=== PATIENT | male | born 1965 | race Native Hawaiian/Other Pacific Islander ===

== ENCOUNTER 2018-05-08 17:32 | Emergency (ER) | payer OTHER ==
[~2018-05-08] VITALS: Ht 175.3 cm; Wt 96.6 kg
[2018-05-08 17:43] VITALS: BP 126/80; TEMP 98.9
[2018-05-08] MEDS ORDERED: FENT100D TD (18:12)
[2018-05-08] MEDS ORDERED: LYRICA 100 MG100 MG PO (18:12)
[2018-05-08] MEDS ORDERED: LIALDA1.2 GM PO (18:13)
[2018-05-08] MEDS ORDERED: BACLOFEN20 MG PO (18:13)
[2018-05-08] MEDS ORDERED: SERT50TA PO (18:13)
[2018-05-08] MEDS ORDERED: ZESTRIL40 MG OR (18:14)
[2018-05-08] MEDS ORDERED: DOXA2TAB PO (18:14)
[2018-05-08] MEDS ORDERED: EDLUAR10 MG SL (18:15)
[2018-05-08] MEDS ORDERED: REMERON SOLTAB15 MG OR (18:15)
[2018-05-08] MEDS ORDERED: AMLO2.5T PO (18:15)
[2018-05-08 18:24] LABS: PLATELET COUNT 197 K/uL (142-355)
[2018-05-08 18:32] LABS: POTASSIUM 3.9 mmol/L (3.6-5.2)
== END 2018-05-08 19:06 | disposition home or self-care (01) ==
LOC: ED 17:32
DX: J98.8 Other specified respiratory disorders (principal)
CPT/HCPCS: 80053; 85027; 87077; 87081; 87185; 87880; 99283

== ENCOUNTER 2019-04-14 12:56 | Outpatient (CLI) | payer OTHER ==
[~2019-04-14 12:56] MED LIST: AMLO2.5T PO; BACLOFEN20 MG PO; DOXA2TAB PO; EDLUAR10 MG SL; FENT100D TD; LIALDA1.2 GM PO; LYRICA 100 MG100 MG PO; REMERON SOLTAB15 MG OR; SERT50TA PO; ZESTRIL40 MG OR
== END 2019-04-14 20:48 | disposition home or self-care (01) ==
LOC: US 12:56
DX: Z87.898 Personal history of other specified conditions (principal); N63.20 Unspecified lump in the left breast, unspecified quadrant

== ENCOUNTER 2019-04-27 15:07 | Emergency (ER) | payer OTHER ==
[~2019-04-27] VITALS: Ht 175.3 cm; Wt 104.3 kg
[2019-04-27 15:42] LABS: PLATELET COUNT 172 K/uL (142-355)
[2019-04-27 15:51] LABS: POTASSIUM 3.2 mmol/L (3.6-5.2)
[2019-04-27 21:07] VITALS: BP 112/70; TEMP 98.2
== END 2019-04-27 21:08 | disposition home or self-care (01) ==
LOC: ED 15:07
PROVIDERS: Emergency Medicine
DX: R33.8 Other retention of urine (principal); R10.84 Generalized abdominal pain; R60.0 Localized edema
CPT/HCPCS: 80053; 83880; 84436; 84443; 84479; 85027; 85379; 93005; 99284; Q9963

== ENCOUNTER 2019-07-12 11:10 | Day surgery (SDC) | payer OTHER | END 2019-07-12 14:00 | disposition home or self-care (01) | LOC: OR 11:10 | PROC: 3E0R33Z Introduction of Anti-inflammatory into Spinal Canal, Percutaneous Approach (ICD-10-PCS; principal; 2019-07-12) | PROC: B01BYZZ Fluoroscopy of Spinal Cord using Other Contrast (ICD-10-PCS; 2019-07-12) | DX: M51.16 Intervertebral disc disorders with radiculopathy, lumbar region (principal); M96.1 Postlaminectomy syndrome, not elsewhere classified ==

== ENCOUNTER 2019-07-13 21:52 | Observation (INO) | payer OTHER ==
[~2019-07-13] VITALS: Ht 175.3 cm; Wt 98.9 kg
[2019-07-13 22:01] VITALS: BP 139/94; TEMP 98.2
[2019-07-13 22:30] VITALS: BP 106/73
[2019-07-13 22:43] LABS: PLATELET COUNT 193 K/uL (142-355); POTASSIUM 2.9 mmol/L (3.6-5.2); SODIUM 140 mmol/L (136-145)
[2019-07-13 23:00] VITALS: BP 117/77
[2019-07-13 23:30] VITALS: BP 150/98
--- NOTE | 2019-07-14 00:30 | NUR ---
0015- TOOK REPORT ON PT FROM ED NURSE MARTA DOVE RN 0030- PT WAS TRANSFERRED VIA W/C TO ROOM 1109 ON MED-SURG DEPT FROM ED. ORIENTED TO ROOM AND CALL LIGHT, PLACED ON TELEMENTRY AND IS BEING MONITORED AT NURSES STATION. PT REQUESTED SOMETHING TO EAT AND DRINK AND WAS CARRIED, SOUP, CEREAL, JUICE, AND MILK. NO ACUTE DISTRESS NOTED. CALL LIGHT IS WITHIN REACH. WILL CONTINUE TO MONITOR.
[2019-07-14 01:39] VITALS: BP 131/89; TEMP 98.5; Ht 175.3 cm; Wt 98.9 kg
[2019-07-14 04:00] VITALS: BP 95/60; TEMP 98.2
--- NOTE | 2019-07-14 04:50 | NUR ---
PATIENT CHECKED IN ON AND FOUND TO BE RESTING IN BED WITH EYES CLOSED. NO ACUTE DISTRESS NOTED AND CALL LIGHT IS WITHIN REACH. TELEMENTRY IS IN PLACE AND BEING MONITORED AT NURSES STATION. WILL CONTINUE TO MONITOR.
--- NOTE | 2019-07-14 05:18 | NUR ---
CALLED ED TO REPORT TO PHYSICIAN PATIENT'S POTASSIUM LEVEL OF 2.9. ED NURSE KRISTEN STATED THAT SHE WOULD REPORT THIS INFORMATION TO PHYSICIAN AND CALL THIS NURSE BACK.
--- NOTE | 2019-07-14 05:55 | NUR ---
Spoke with ED physician, Dr Swain about patient's Ka of 2.9 and new order was received for Potassium, 60 mg, po, x 1 dose
[2019-07-14 08:00] VITALS: BP 105/63; TEMP 97.5
[2019-07-14 08:02] LABS: PLATELET COUNT 194 K/uL (142-355)
[2019-07-14 08:29] LABS: POTASSIUM 3.6 mmol/L (3.6-5.2)
--- NOTE | 2019-07-14 08:45 | NUR ---
PT C/O CHEST PAIN. PT STATES "IT IS SHARP, STABBING PAIN AND IT FEELS LIKE A CAR IS SITTING ON MY CHEST. MY LOWER BACK IS ALSO HURTING." PT IS NON DIAPHORETIC. BP 105/63, HR 80, RR 18, SPO2 [address] JEFFREY NOTIFIED. CE NORMAL, STAT EKG ORDERED. 0900- EKG FINSIHED AND GIVEN TO DR JEFFREY 0915- GI COCKTAIL GIVEN PER ORDER. PT STATES IS DOES NOT HELP HIM, PT ALSO STATES "THE NITRO THEY GAVE ME IN THE ER LAST NIGHT DID NOT HELP, IT JUST GAVE ME A HEADACE. THE MORPHINE SEEMED TO HELP BETTER."
[2019-07-14] MEDS ORDERED: CYCL10TA35 PO (10:07)
[2019-07-14] MEDS ORDERED: AMLODIPINE BESYLATE PO (10:08)
[2019-07-14] MEDS ORDERED: REMERON SOLTAB30 MG PO (10:09)
[2019-07-14] MEDS ORDERED: ESCITALOPRAM10 MG PO (10:10)
[2019-07-14] MEDS ORDERED: MS CONTIN15 MG PO (10:11)
[2019-07-14] MEDS ORDERED: OXYC5TAB53 PO (10:13)
[2019-07-14] MEDS ORDERED: CARV12.5 PO (10:13)
[2019-07-14] MEDS ORDERED: LIPITOR20 MG PO (10:14)
[2019-07-14] MEDS ORDERED: SPIR50TA8 PO (10:15)
[2019-07-14] MEDS ORDERED: TAMS0.4C PO (10:16)
[2019-07-14 12:00] VITALS: BP 123/72; TEMP 98
--- NOTE | 2019-07-14 12:51 | NUR ---
IV DC TIP INTACT. PT GIVEN DC INSTRUCTIONS. PT PRESCRIPTIONS FOR ZITHROMAX WILLIE AND PREDNISONE 20 MG PO DAILY FILLED AT [facility]. PT INSTRUCTED TO F/U WITH PCP IN 5-7 DAYS. PT VERBALIZES UNDERSTANDING. PT INSTRUCTED TO REPORT ANY S/S OF CHEST PAIN, DIFFICULTY BREATHING, SOB. PT INSTRUCTED TO COME TO ER IF CHEST PAIN PRESIST. PT VERBALIZES UNDERSTANDING. PT DC VIA WC
== END 2019-07-14 13:00 | disposition home or self-care (01) ==
LOC: ED 21:52 → MED/SURG 23:20
PROVIDERS: Family Medicine; ADMIT Emergency Medicine
DX: R07.89 Other chest pain (principal); R09.1 Pleurisy; E87.6 Hypokalemia; D72.828 Other elevated white blood cell count; R73.9 Hyperglycemia, unspecified; I10 Essential (primary) hypertension
CPT/HCPCS: 36415; 80053; 80061; 82550; 82553; 83735; 83880; 84439; 84443; 84481; 84484; 85027; 85379; 86318; 93005; 96374; 99220; 99284; G0378; J0456; J1020; J2270; J2930; J3490

== ENCOUNTER 2019-08-09 07:29 | Day surgery (SDC) | payer OTHER ==
[~2019-08-09 07:29] MED LIST changes: +AMLODIPINE BESYLATE PO; +CARV12.5 PO; +CYCL10TA35 PO; +ESCITALOPRAM10 MG PO; +LIPITOR20 MG PO; +MS CONTIN15 MG PO; +OXYC5TAB53 PO; +REMERON SOLTAB30 MG PO; +SPIR50TA8 PO; +TAMS0.4C PO
== END 2019-08-09 09:07 | disposition home or self-care (01) ==
LOC: OR 07:29
PROC: 3E0R33Z Introduction of Anti-inflammatory into Spinal Canal, Percutaneous Approach (ICD-10-PCS; principal; 2019-08-09)
PROC: B01BYZZ Fluoroscopy of Spinal Cord using Other Contrast (ICD-10-PCS; 2019-08-09)
DX: M51.16 Intervertebral disc disorders with radiculopathy, lumbar region (principal)
CPT/HCPCS: J1020

== ENCOUNTER 2019-09-02 10:07 | Outpatient (CLI) | payer OTHER | END 2019-09-02 19:51 | disposition home or self-care (01) | LOC: MAMMO 10:07 | DX: N63.20 Unspecified lump in the left breast, unspecified quadrant (principal); N62 Hypertrophy of breast | CPT/HCPCS: G0279 ==

== ENCOUNTER 2019-09-15 13:08 | Outpatient (CLI) | payer OTHER | END 2019-09-15 23:32 | disposition home or self-care (01) | LOC: US 13:08 | DX: N63.20 Unspecified lump in the left breast, unspecified quadrant (principal); M54.12 Radiculopathy, cervical region ==

== ENCOUNTER 2019-10-18 10:21 | Day surgery (SDC) | payer OTHER | END 2019-10-18 12:46 | disposition home or self-care (01) | LOC: OR 10:21 | PROC: 3E0R33Z Introduction of Anti-inflammatory into Spinal Canal, Percutaneous Approach (ICD-10-PCS; principal; 2019-10-18) | PROC: B01BYZZ Fluoroscopy of Spinal Cord using Other Contrast (ICD-10-PCS; 2019-10-18) | DX: M50.123 Cervical disc disorder at C6-C7 level with radiculopathy (principal) | CPT/HCPCS: J1020 ==

== ENCOUNTER 2019-11-08 07:05 | Day surgery (SDC) | payer OTHER | END 2019-11-08 08:59 | disposition home or self-care (01) | LOC: OR 07:05 | PROC: 3E0R33Z Introduction of Anti-inflammatory into Spinal Canal, Percutaneous Approach (ICD-10-PCS; principal; 2019-11-08) | PROC: B01BYZZ Fluoroscopy of Spinal Cord using Other Contrast (ICD-10-PCS; 2019-11-08) | DX: M50.123 Cervical disc disorder at C6-C7 level with radiculopathy (principal) | CPT/HCPCS: J1020 ==

== ENCOUNTER 2019-12-20 09:11 | Outpatient (CLI) | payer OTHER | END 2019-12-20 19:24 | disposition home or self-care (01) | LOC: US 09:11 | DX: I10 Essential (primary) hypertension (principal); N28.1 Cyst of kidney, acquired; M54.16 Radiculopathy, lumbar region; M54.12 Radiculopathy, cervical region ==

== ENCOUNTER 2020-01-04 12:07 | Outpatient (CLI) | payer OTHER | END 2020-01-04 16:00 | disposition home or self-care (01) | LOC: CT 12:07 | DX: M54.12 Radiculopathy, cervical region (principal); Z79.82 Long term (current) use of aspirin | CPT/HCPCS: 36415; 85610; Q9963 ==

== ENCOUNTER 2020-09-04 10:28 | Day surgery (SDC) | payer OTHER | END 2020-09-04 10:59 | disposition home or self-care (01) | LOC: OR 10:28 | PROC: 3E0R33Z Introduction of Anti-inflammatory into Spinal Canal, Percutaneous Approach (ICD-10-PCS; principal; 2020-09-04) | PROC: B01BYZZ Fluoroscopy of Spinal Cord using Other Contrast (ICD-10-PCS; 2020-09-04) | DX: M50.123 Cervical disc disorder at C6-C7 level with radiculopathy (principal) | CPT/HCPCS: J1020 ==

== ENCOUNTER 2020-10-15 09:39 | Outpatient (CLI) | payer OTHER | END 2020-10-15 19:05 | disposition home or self-care (01) | LOC: LABW 09:39 | PROVIDERS: ATTEND Surgery | DX: N63.10 Unspecified lump in the right breast, unspecified quadrant (principal); N63.20 Unspecified lump in the left breast, unspecified quadrant; Z79.899 Other long term (current) drug therapy | CPT/HCPCS: 36415; 84402; 84403; 84436; 84439; 84443 ==

== ENCOUNTER 2020-11-05 19:42 | Emergency (ER) | payer OTHER ==
[~2020-11-05] VITALS: Ht 175.3 cm; Wt 106.1 kg
[2020-11-05 22:29] VITALS: BP 126/85; TEMP 99.8
== END 2020-11-05 22:30 | disposition home or self-care (01) ==
LOC: ED 19:42
DX: T78.49XA Other allergy, initial encounter (principal)
CPT/HCPCS: 96372; 99283; J0171

== ENCOUNTER 2020-11-13 14:10 | Outpatient (CLI) | payer OTHER ==
[2020-11-13 15:34] LABS: PLATELET COUNT 183 K/uL (142-355)
[2020-11-13 15:35] LABS: POTASSIUM 3.9 mmol/L (3.6-5.2)
== END 2020-11-13 18:51 | disposition home or self-care (01) ==
LOC: LABW 14:10
PROVIDERS: ATTEND Surgery
DX: N62 Hypertrophy of breast (principal); Z79.899 Other long term (current) drug therapy; Z11.59 Encounter for screening for other viral diseases; Z79.01 Long term (current) use of anticoagulants
CPT/HCPCS: 36415; 80053; 85027; 85610; 87635; 93005; U0003

== ENCOUNTER 2021-04-10 07:41 | Outpatient (CLI) | payer OTHER | END 2021-04-10 21:23 | disposition home or self-care (01) | LOC: US 07:41 | PROVIDERS: ATTEND Nurse Practitioner Family | DX: R60.0 Localized edema (principal); I10 Essential (primary) hypertension; E11.9 Type 2 diabetes mellitus without complications; M79.7 Fibromyalgia; G57.90 Unspecified mononeuropathy of unspecified lower limb ==

== ENCOUNTER 2021-04-16 08:49 | Outpatient (CLI) | payer OTHER ==
[2021-04-16 09:04] LABS: PLATELET COUNT 232 K/uL (142-355)
[2021-04-16 09:14] LABS: POTASSIUM 4.3 mmol/L (3.6-5.2)
== END 2021-04-16 22:04 | disposition home or self-care (01) ==
LOC: LABW 08:49
PROVIDERS: ATTEND Internal Medicine Hematology & Oncology
DX: C43.9 Malignant melanoma of skin, unspecified (principal)
CPT/HCPCS: 36415; 80053; 83615; 85027

== ENCOUNTER 2021-08-16 16:05 | Emergency (ER) | payer OTHER ==
[~2021-08-16] VITALS: Ht 175.3 cm; Wt 106.1 kg
[2021-08-16 17:55] LABS: PLATELET COUNT 230 K/uL (142-355)
[2021-08-16 18:09] LABS: POTASSIUM 3.7 mmol/L (3.6-5.2)
[2021-08-16 21:09] VITALS: BP 136/80; TEMP 100
== END 2021-08-16 21:09 | disposition home or self-care (01) ==
LOC: ED 16:05
PROVIDERS: Emergency Medicine Emergency Medical Services
DX: J20.9 Acute bronchitis, unspecified (principal); Z20.822 Contact with and (suspected) exposure to COVID-19; W18.39XA Other fall on same level, initial encounter; Y92.89 Other specified places as the place of occurrence of the external cause
CPT/HCPCS: 80053; 83690; 85027; 87635; 96365; 96375; 99284; J2405; J2930; U0003

== ENCOUNTER 2021-11-26 15:26 | Observation (INO) | payer OTHER ==
[2021-11-26] VITALS (7 sets, daily range): BP systolic 138–182; BP diastolic 45–132; TEMP 98.4
[~2021-11-26] VITALS: Ht 175.3 cm; Wt 104.3 kg
[~2021-11-26 15:26] MED LIST changes: -AMLODIPINE BESYLATE PO; +AMLODIPINE PO; -LYRICA 100 MG100 MG PO; -OXYC5TAB53 PO; +PERCOCET1 TA1 PO; +PREGABALIN150 MG PO
[2021-11-26 16:12] LABS: PLATELET COUNT 224 K/uL (142-355)
[2021-11-26 16:21] LABS: POTASSIUM 3.3 mmol/L (3.6-5.2)
[2021-11-27 00:50] VITALS: BP 154/105; TEMP 98.8; Ht 175.3 cm; Wt 104.3 kg
[2021-11-27 04:00] VITALS: BP 150/99; TEMP 98.4
[2021-11-27 08:00] VITALS: BP 135/99; TEMP 98.8
[2021-11-27] MEDS ORDERED: TIZANIDINE HYDRO4 M1 PO (09:46)
[2021-11-27] MEDS ORDERED: BUMETANIDE1 MG PO (09:50)
[2021-11-27] MEDS ORDERED: CLON0.1T16 PO (09:51)
[2021-11-27] MEDS ORDERED: FUROSEMIDE40 MG PO (09:53)
[2021-11-27] MEDS ORDERED: HYDROXYZINE HYD25 MG PO (09:54)
[2021-11-27] MEDS ORDERED: LEVOCETIRIZINE D5 MG PO (09:55)
[2021-11-27] MEDS ORDERED: METF500T PO (09:55)
[2021-11-27 12:00] VITALS: BP 131/75; BP 163/99; TEMP 98.2; TEMP 98.7
[2021-11-27 12:59] LABS: PLATELET COUNT 193 K/uL (142-355)
[2021-11-27 13:10] LABS: POTASSIUM 3.7 mmol/L (3.6-5.2)
[2021-11-27] MEDS ORDERED: LEVAQUIN250 MG PO (15:14)
== END 2021-11-27 16:05 | disposition home or self-care (01) ==
LOC: ED 15:26 → MED/SURG 20:15
PROVIDERS: ADMIT Hospitalist; ATTEND Internal Medicine
DX: R07.89 Other chest pain (principal); E86.0 Dehydration; I10 Essential (primary) hypertension; M15.8 Other polyosteoarthritis; R10.9 Unspecified abdominal pain
CPT/HCPCS: 36415; 80048; 80053; 81000; 82150; 82550; 83605; 83690; 84484; 85027; 87040; 87088; 87635; 93005; 96360; 96361; 96365; 96375; 99220; 99284; G0378; J0360; J1170; J1650; J1815; J2270; J2405; J2543; Q9963; U0003

== ENCOUNTER 2022-02-25 11:55 | Outpatient (CLI) | payer OTHER ==
[~2022-02-25 11:55] MED LIST changes: +BUMETANIDE1 MG PO; +CLON0.1T16 PO; +FUROSEMIDE40 MG PO; +HYDROXYZINE HYD25 MG PO; +LEVAQUIN250 MG PO; +LEVOCETIRIZINE D5 MG PO; +METF500T PO; +TIZANIDINE HYDRO4 M1 PO
== END 2022-02-25 19:11 | disposition home or self-care (01) ==
LOC: RAD 11:55
PROVIDERS: ATTEND Nurse Practitioner Family
DX: M25.561 Pain in right knee (principal)

== ENCOUNTER 2022-03-26 11:01 | Outpatient (CLI) | payer OTHER | END 2022-03-26 21:40 | disposition home or self-care (01) | LOC: CT 11:01 | PROVIDERS: ATTEND Nurse Practitioner Family | DX: M25.562 Pain in left knee (principal); M17.12 Unilateral primary osteoarthritis, left knee; M54.10 Radiculopathy, site unspecified; M25.50 Pain in unspecified joint ==

== ENCOUNTER → 2022-09-23 | Outpatient (CLI) | payer OTHER | LOC: RAD 16:44 | PROVIDERS: ATTEND Orthopaedic Surgery | DX: M25.562 Pain in left knee (principal) ==

== ENCOUNTER 2022-12-23 14:22 | Outpatient (CLI) | payer OTHER | END 2022-12-23 19:23 | disposition home or self-care (01) | LOC: RAD 14:22 | PROVIDERS: ATTEND Nurse Practitioner Family | DX: R06.2 Wheezing (principal) ==

== ENCOUNTER 2023-01-29 18:29 | Outpatient (CLI) | payer OTHER | END 2023-01-29 19:30 | disposition home or self-care (01) | LOC: RAD 18:29 | PROVIDERS: ATTEND Physician Assistant | DX: M54.12 Radiculopathy, cervical region (principal) ==

== ENCOUNTER 2023-04-09 13:00 | Outpatient (CLI) | payer OTHER | END 2023-04-09 20:55 | disposition home or self-care (01) | LOC: CT 13:00 | PROVIDERS: ATTEND Physician Assistant | DX: M54.12 Radiculopathy, cervical region (principal) ==

== ENCOUNTER 2023-06-08 12:19 | Outpatient (CLI) | payer OTHER | END 2023-06-08 19:12 | disposition home or self-care (01) | LOC: RAD 12:19 | PROVIDERS: ATTEND Nurse Practitioner Family | DX: R10.9 Unspecified abdominal pain (principal) ==

== ENCOUNTER 2023-06-10 10:55 | Outpatient (CLI) | payer OTHER | END 2023-06-10 19:58 | disposition home or self-care (01) | LOC: LABW 10:55 | PROVIDERS: ATTEND Nurse Practitioner Family | DX: R10.9 Unspecified abdominal pain (principal) | CPT/HCPCS: 82272; 82705; 83630; 87015; 87045; 87338; 87899 ==

== ENCOUNTER 2023-08-28 13:11 | Outpatient (CLI) | payer OTHER | END 2023-08-28 19:03 | disposition home or self-care (01) | LOC: RESP 13:11 | PROVIDERS: ATTEND Specialist | DX: I10 Essential (primary) hypertension (principal); R60.0 Localized edema; I73.9 Peripheral vascular disease, unspecified; R07.89 Other chest pain; R06.02 Shortness of breath ==

== ENCOUNTER 2023-09-08 08:47 | Outpatient (CLI) | payer OTHER ==
[~2023-09-08] VITALS: Ht 152.4 cm; Wt 96.6 kg
== END 2023-09-08 18:58 | disposition home or self-care (01) ==
LOC: NM 08:47
PROVIDERS: ATTEND Specialist
DX: I10 Essential (primary) hypertension (principal); R60.0 Localized edema; I73.9 Peripheral vascular disease, unspecified; R07.89 Other chest pain; R06.02 Shortness of breath
CPT/HCPCS: A9500; J2785